=== PATIENT | female | born 1990 | race Hispanic/Latino ===

== ENCOUNTER 2017-07-05 18:03 | Emergency (ER) | payer OTHER, SELFPAY ==
[2017-07-05 19:00] LABS: Absolute Monocytes 0.6 K/uL (0.1-1.3); Absolute Neutrophil 4.5 K/uL (1.8-8.0); Basophils % 0.4 % (0-1.3); Eosinophils % 2.8 % (0-4.4); Hematocrit 35.9 % (36.0-45.0); Lymphocytes % 35.8 % (15.3-44.8); MCH 29.8 pg (27.0-35.0); MCV 87.4 fL (80-100); MPV 8.1 fL (7.6-11.3); RBC Red Blood Cell Count 4.11 M/uL (3.86-4.86)
[2017-07-05 19:09] LABS: BUN Blood Urea Nitrogen 5 mg/dL (6-20); Bicarbonate 22 mEq/L (21-31); Glucose Level 108 mg/dL (65-120); Potassium 3.4 mEq/L (3.6-5.0); Sodium Level 139 mEq/L (135-145)
[2017-07-05 19:32] LABS: Urine Blood NEGATIVE (NEG); Urine Glucose NEGATIVE (NEG); Urine Protein NEGATIVE (NEG)
--- NOTE | 2017-07-05 19:34 | RAD REPORT ---
EXAM DESCRIPTION: US - OB Limited - 07/05/2017 7:16 pm CLINICAL HISTORY: Pelvic pain and cramping. COMPARISON: None. FINDINGS: A single breech presenting gestation is identified. Heart rate normal. anatomic survey was not performed. measurements are as follows: BPD:3.0 Centimeters 15 weeks 4 days HC:11.5 Centimeters 15 weeks 4 days AC:9.4 Centimeters 15 weeks 4 days HL:2.0 Centimeters 15 weeks 6 days FL:1.9 Centimeters 15 weeks 4 days The estimated gestational age (EGA) is 15 weeks 4 days with an DEIDRE of12/23/2017. The placenta is grade 0, posterior in location. No placenta previa. The amniotic fluid volume is normal. IMPRESSION: 1. Single, breech gestation with an EGA of 15 weeks 4 days and an DEIDRE of the 12/23/2017. 2. anatomic survey was not performed. 3. Grade 0, posterior placenta. 4. Amniotic fluid volume is normal.
[2017-07-05 19:37] LABS: Urine Bacteria NONE SEEN /HPF (<20); Urine Culture Reflex Order NOT NEEDED; Urine RBC <5 /HPF (NONE SEEN)
--- NOTE | 2017-07-05 19:44 | EDPHYS ---
Physician Documentation [facility] Name: Katherine Simpson Age: 26 yrs Sex: Female : 1990 Arrival Date: 07/05/2017 Time: 18:07 Bed 13 Private MD: ED Physician Ehsan Shah HPI: 07/05 18:37 This 26 yrs old Female presents to ER via Ambulatory with complaints of 15 snw WEEKS PG, FLUID LEAKING, Abdominal Pain. 18:37 The patient presents to the emergency department with rupture of membranes, that snw occurred just prior to arrival. The estimated gestational age is 16 weeks. course: care: [place]. Previous pregnancies: in previous pregnancies patient has had. Associated signs and symptoms: Pertinent positives: abdominal pain, ruptured membranes. The patient has not experienced similar symptoms in the past. OB in [place]. 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 - Social history:: Smoking status: Patient/guardian denies using tobacco. ROS: 18:36 Constitutional: Negative for fever, chills, and weight loss, Eyes: Negative for injury, snw pain, redness, and discharge, ENT: Negative for injury, pain, and discharge, Neck: Negative for injury, pain, and swelling, Cardiovascular: Negative for chest pain, palpitations, and edema, Respiratory: Negative for shortness of breath, cough, wheezing, and pleuritic chest pain. 18:36 MS/Extremity: Negative for injury and deformity, Skin: Negative for injury, rash, and discoloration, Neuro: Negative for headache, weakness, numbness, tingling, and seizure. 18:36 Back: Positive for pain at rest. 18:36 : Positive for gush of fluid and low back and low pelvic discomfort. Exam: 18:34 Constitutional: This is a well developed, well nourished patient who is awake, alert, snw and in no acute distress. Head/Face: Normocephalic, atraumatic. Eyes: Pupils equal round and reactive to light, extra-ocular motions intact. Lids and lashes normal. Conjunctiva and sclera are non-icteric and not injected. Cornea within normal limits. Periorbital areas with no swelling, redness, or edema. ENT: Nares patent. No nasal discharge, no septal abnormalities noted. Tympanic membranes are normal and external auditory canals are clear. Oropharynx with no redness, swelling, or masses, exudates, or evidence of obstruction, uvula midline. Mucous membranes moist. Neck: Trachea midline, no thyromegaly or masses palpated, and no cervical lymphadenopathy. Supple, full range of motion without nuchal rigidity, or vertebral point tenderness. No Meningismus. Chest/axilla: Normal chest wall appearance and motion. Nontender with no deformity. No lesions are appreciated. Cardiovascular: Regular rate and rhythm with a normal S1 and S2. No gallops, murmurs, or rubs. Normal PMI, no JVD. No pulse deficits. Respiratory: Lungs have equal breath sounds bilaterally, clear to auscultation and percussion. No rales, rhonchi or wheezes noted. No increased work of breathing, no retractions or nasal flaring. Back: No spinal tenderness. No costovertebral tenderness. Full range of motion. Skin: Warm, dry with normal turgor. Normal color with no rashes, no lesions, and no evidence of cellulitis. MS/ Extremity: Pulses equal, no cyanosis. Neurovascular intact. Full, normal range of motion. Neuro: Awake and alert, GCS 15, oriented to person, place, time, and situation. Cranial nerves II-XII grossly intact. Motor strength 5/5 in all extremities. Sensory grossly intact. Cerebellar exam normal. Normal gait. 18:34 Abdomen/GI: Inspection: gravid appearance, is noted, Bowel sounds: normal, in all quadrants, Palpation: abdomen is soft and non-tender, in all quadrants. Vital Signs: 18:18 BP 114 / 72; Pulse 77; Resp 19; Temp 98.0; Pulse Ox 100% on R/A; Weight 74.84 kg; aj Height 5 ft. 5 in. (165.10 cm); 18:18 Body Mass Index 27.46 (74.84 kg, 165.10 cm) aj MDM: 18:23 Patient medically screened. snw 19:46 Data reviewed: vital signs, nurses notes. Data interpreted: Pulse oximetry: on room air snw is 100 %. Interpretation: normal. Counseling: I had a detailed discussion with the patient and/or guardian regarding: the historical points, exam findings, and any diagnostic results supporting the discharge/admit diagnosis, lab results, radiology results, the need for outpatient follow up, to return to the emergency department if symptoms worsen or persist or if there are any questions or concerns that arise at home. Special discussion: Based on the patient's Hx, exam, and Dx evaluation, there is no indication for emergent surgery or inpatient Tx. It is understood by the patient/guardian that if the Sx's persist or worsen they need to return immediately for re-evaluation. Based on the history and exam findings, there is no indication for further emergent testing or inpatient evaluation. I discussed with the patient/guardian the need to see the OB Gyne specialist for further evaluation of the symptoms. 07/05 18:32 Order name: Urine Culture 07/05 18:32 Order name: Urine Microscopic Only; Complete Time: 19:40 ia07/05 18:33 Order name: Quantitative Hcg; Complete Time: 19:58 07/05 18:33 Order name: Abo/rh Typing; Complete Time: 19:07 07/05 18:33 Order name: Basic Metabolic Panel; Complete Time: 19:58 07/05 18:33 Order name: CBC with Diff; Complete Time: 19:07 07/05 18:32 Order name: US OB Limited; Complete Time: 19:40 07/05 18:32 Order name: Urine Test (obtain specimen); Complete Time: 18:56 07/05 18:32 Order name: Urine Dipstick-Ancillary (obtain specimen); Complete Time: 18:59 07/05 18:33 Order name: IV Saline Lock; Complete Time: 18:58 07/05 18:33 Order name: Labs collected and sent; Complete Time: 18:59 07/05 18:33 Order name: NPO; Complete Time: 18:59 07/05 19:25 Order name: Urine Dipstick--Ancillary (enter results); Complete Time: 19:40 07/05 19:25 Order name: Urine --Ancillary (enter results); Complete Time: 19:40 07/05 18:33 Order name: Urine Dipstick-Ancillary (obtain specimen); Complete Time: 18:56 la1 Administered Medications: No medications were administered Disposition: 07/06 07:29 Co-signature as Attending Physician, Ehsan Shah MD. rn Disposition: 07/05/17 19:43 Discharged to Home. Impression: Threatened . - Condition is Stable. - Discharge Instructions: Threatened Miscarriage, Pelvic Rest. - Prescriptions for Vitamin 27- 0.8 mg Oral Tablet - take 1 tablet by ORAL route once daily; 60 tablet. - Medication Reconciliation Form, Thank You Letter, Antibiotic Education, Prescription Opioid Use form. - Follow up: Private Physician; When: Tomorrow; Reason: Recheck today's complaints, Continuance of care, Re-evaluation by your physician. Follow up: Emergency Department; When: As needed; Reason: Worsening of condition. Signatures: Dispatcher [employer] EDMarcela Hernandez RN RN aj Therrien, Shelly, PRODUCTION PLANNING SUPERVISOR-C PRODUCTION PLANNING SUPERVISOR-Csnw Ehsan Shah MD MD rn Attema, Lee, RN RN la1 Corrections: (The following items were deleted from the chart) 07/05 20:06 19:43 07/05/2017 19:43 Discharged to Home. Impression: Threatened . Condition la1 is Stable. Forms are Medication Reconciliation Form, Thank You Letter, Antibiotic Education, Prescription Opioid Use. Follow up: Private Physician; When: Tomorrow; Reason: Recheck today's complaints, Continuance of care, Re-evaluation by your physician. Follow up: Emergency Department; When: As needed; Reason: Worsening of condition. snw
--- NOTE | 2017-07-05 19:44 | ER ---
Nurse's Notes [facility] Name: Katherine Simpson Age: 26 yrs Sex: Female : 1990 Arrival Date: 07/05/2017 Time: 18:07 Bed 13 Private MD: Diagnosis: Threatened Presentation: 07/05 18:16 Presenting complaint: Mother states: Patient reports sitting up in bed and having gush aj of clear fluid and sudden onset of lower abdominal and low back pain. Transition of care: patient was not received from another setting of care. Onset of symptoms was July 05, 2017. Initial Sepsis Screen: Does the patient meet any 2 criteria? No. Patient's initial sepsis screen is negative. Does the patient have a suspected source of infection? No. Patient's initial sepsis screen is negative. Care prior to arrival: None. 18:16 Method Of Arrival: Ambulatory aj 18:16 Acuity: GERARDO 3 aj Triage Assessment: 18:18 General: Appears in no apparent distress. comfortable, Behavior is calm, cooperative, aj appropriate for age. Pain: Complains of pain in suprapubic area, right inguinal area and left inguinal area. Neuro: Level of Consciousness is awake, alert, obeys commands, Oriented to person, place, time, situation, Appropriate for age. Respiratory: Airway is patent Respiratory effort is even, unlabored, Respiratory pattern is regular, symmetrical. GI: Abdomen is round. : Reports discharge, from vagina that is watery. Derm: Skin is intact, is healthy with good turgor, Skin is pink, warm \T\ dry. normal. 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 - Social history:: Smoking status: Patient/guardian denies using tobacco. Screenin:57 Abuse screen: Denies threats or abuse. Nutritional screening: No deficits noted. la1 Tuberculosis screening: No symptoms or risk factors identified. Fall Risk None identified. Assessment: 18:55 General: Appears in no apparent distress. Behavior is calm, cooperative. Pain: la1 Complains of pain in right lower quadrant and left lower quadrant. Neuro: Level of Consciousness is awake, alert, obeys commands, Oriented to person, place, time, situation. Cardiovascular: Heart tones S1 S2 present Capillary refill < 3 seconds Patient's skin is warm and dry. Respiratory: Airway is patent Respiratory effort is even, unlabored, Respiratory pattern is regular, symmetrical, Breath sounds are clear bilaterally. GI: Abdomen is round non-distended, Bowel sounds present X 4 quads. Abd is soft and non tender. : Denies burning with urination, urinary frequency. Vital Signs: 18:18 BP 114 / 72; Pulse 77; Resp 19; Temp 98.0; Pulse Ox 100% on R/A; Weight 74.84 kg; aj Height 5 ft. 5 in. (165.10 cm); 18:18 Body Mass Index 27.46 (74.84 kg, 165.10 cm) ED Course: 18:07 Patient arrived in ED. sb2 18:18 Triage completed. aj 18:18 Arm band placed on right wrist. Patient placed in an exam room. aj 18:22 Lon Sadler, GEREMIAS is Primary Nurse. la1 18:23 Leanna Alvarez FNP-C is PHCP. snw 18:23 Ehsan Shah MD is Attending Physician. snw 18:55 Ultrasound completed. Patient tolerated well. ap2 18:58 Bed in low position. Call light in reach. la1 19:16 US OB Limited In Process Unspecified. EDMS 20:06 No provider procedures requiring assistance completed. IV discontinued, intact, la1 bleeding controlled, No redness/swelling at site. Pressure dressing applied. Administered Medications: No medications were administered Outcome: 19:43 Discharge ordered by . snw 20:06 Discharged to home ambulatory. la1 20:06 Condition: stable 20:06 Discharge instructions given to patient, Instructed on discharge instructions, follow up and referral plans. medication usage, Demonstrated understanding of instructions, follow-up care, medications, Prescriptions given X 1. 20:06 Patient left the ED. la1 Signatures: Dispatcher [employer] Marcela Jacome, RN Leanna Gallardo FNP-C DEBONE SUPERVISOR-Csnw Lon Sadler RN RN la1 Nicolasa Cosme ap2 Jolene Arora sb2
== END 2017-07-05 20:06 | disposition home or self-care (01) ==
LOC: ER 18:03
DX: O20.0 Threatened abortion (principal); Z3A.16 16 weeks gestation of pregnancy
CPT/HCPCS: 36415; 76815; 80048; 81003; 81015; 81025; 84702; 85025; 86900; 86901; 87086; 87088; 99283